=== PATIENT | female | born 2000 | race African-American/Black ===

== ENCOUNTER 2021-01-06 15:13 | Emergency (ER) | payer OTHER, SELFPAY ==
--- NOTE | ~2021-01-06 | XR_ITS ---
XR lumbar spine min 4V 01/06/2021 16:33 Indication: Low back pain after fall Procedure: 5 views of the lumbar spine Comparison: No prior studies for comparison. Findings: There is levoscoliosis measuring 12 degrees centered at L3. No fracture or traumatic malali gnment. Vertebral body heights are maintained. No significant disc narrowing. No evidence for spondyl olysis or spondylolisthesis. Sacral foramen are symmetric. Impression: 1: No acute abnormality of the lumbar spine. Reviewed, dictated and finalized at location A. Impression: 1: No acute abnormality of the lumbar spine.
[2021-01-06 15:17] VITALS: BP 137/64; PULSE 98; RESP 14; TEMP 36.6; O2SAT 99
[2021-01-06 15:33] VITALS: BP 137/64; PULSE 98; RESP 18; TEMP 36.6; O2SAT 100
--- NOTE | 2021-01-06 16:20 | PC.NURSE ---
pt to xray.
--- NOTE | 2021-01-06 16:36 | ED.FALL ---
HPI - Fall General Chief Complaint: Fall Stated Complaint: fall, lower back pain, brusing Time Seen by Provider: 01/06/21 15:59 Source: patient Mode of arrival: ambulatory Limitations: no limitations History of Present Illness HPI Narrative: Patient is a 20-year-old female who presents after injuring her back yesterday after slipping on the stairs landing on her back where she has aching pain across the lumbar spine no radiation of pain denies other injuries or complaints presents in no distress and does not take anything for pain Related Data Home Medications Medication Instructions Recorded Confirmed No Home Medications 01/06/21 01/06/21 Allergies Allergy/AdvReac Type Severity Reaction Status Date / Time No Known Allergies Allergy Verified 01/06/21 15:38 Review of Systems Review of Systems: All systems reviewed & are unremarkable except as noted in HPI and below PMFSH Social History Social History (Updated 01/06/21 @ 16:39 by Hemant Meier PA-C) Smoking status: Never smoker Exam Narrative: Exam Narrative: GENERAL: Well-appearing, well-nourished, and in no acute distress. HEAD: Normocephalic, atraumatic. EYES: PERRLA and EOMI. ENT: Nares clear, no rhinorrhea or epistaxis. Mucous membranes moist. NECK: Supple. No adenopathy or masses. CHEST: Clear to auscultation. No respiratory distress. No wheezes rales or rhonchi HEART: Regular rate and rhythm. No murmur heard. Normal peripheral pulses. ABDOMEN: Soft, nontender, nondistended EXTREMITIES: Normal range of motion. No edema. Tenderness across the lower lumbar spine SKIN: Warm, dry, no rash. NEURO: No focal deficits. Alert and oriented x3. Cranial nerves II through XII grossly intact PSYCH: Normal mood and affect. Course Course Emergency Course: Patient evaluated the emergency department negative radiographs will be treated medically given primary care follow-up felt appropriate for outpatient reevaluation no findings concerning for cauda equina or impingement Vital Signs Vital signs: Vital Signs Temperature 97.8 F 01/06/21 15:17 Pulse Rate 98 01/06/21 15:17 Respiratory Rate 14 01/06/21 15:17 Blood Pressure 137/64 01/06/21 15:17 Pulse Oximetry 99 01/06/21 15:17 Temperature 97.8 F 01/06/21 15:33 Pulse Rate 98 04/21/21 15:33 Respiratory Rate 18 01/06/21 15:33 Blood Pressure 137/64 01/06/21 15:33 Pulse Oximetry 100 01/06/21 15:33 MDM - Fall MDM Narrative Medical decision making narrative: Patients injury or pain is consistent with musculoskeletal etiology. No signs of neurological or vascular compromise on exam. Compartments and tisues are soft without signs of compartment syndrome. Pain is felt appropriate for further evaluation on an outpatient basis. Discharge Plan Discharge Clinical Impression: Acute bilateral low back pain Patient Disposition: Home, Self-Care Condition: Stable Instructions: Antibiotic Form, Acute Low Back Pain (ED) Additional Instructions: Medications as needed and prescribed. Limit lifting and bending. You may apply heat or cold to the area as needed. Follow up with your doctor for further care. Contact your doctor or return to the emergency department if you develop problems with bladder or bowel function, weakness or loss of feeling in one or both of your legs, or any other serious concerns. Prescriptions: New cyclobenzaprine 10 mg tablet 10 mg PO TID PRN (Reason: muscle spasm) Qty: 14 RF: 0 lidocaine 5 % adhesive patch,medicated 1 patch topical DAILY Qty: 1 RF: 0 ibuprofen [IBU] 600 mg tablet 600 mg PO Q6H PRN (Reason: fever or pain) Qty: 7 RF: 0 No Action No Home Medications RF: 0 Follow-up/Referrals: Bryan Hurst MD [Primary Care Provider] - Stand Alone Forms: Work/School Release IP
[2021-01-06] MEDS: LIDOCAINE 5% PATCH 1 PATCH TRANSDERM (16:40)
[2021-01-06] MEDS: KETOROLAC (*BKC) 60 MG/2 ML VIAL IM (16:40)
[2021-01-06 17:25] VITALS: BP 128/64; PULSE 93; RESP 20; O2SAT 97
== END 2021-01-06 17:28 | disposition home or self-care (01) ==
PROVIDERS: Emergency Provider Emergency Medicine; PCP Emergency Medicine
DX: S39.92XA Unspecified injury of lower back, initial encounter (principal); W10.9XXA Fall (on) (from) unspecified stairs and steps, initial encounter
CPT/HCPCS: 72110; 96372; 99283; A9270; J1885

== ENCOUNTER → 2021-01-27 14:42 | Outpatient (CLI) | payer OTHER, SELFPAY ==
--- NOTE | ~2021-01-27 | XR_ITS ---
XR hip LT min 2V DATE: 01/27/2021 15:07 INDICATION: Left hip and thigh pain TECHNIQUE: AP, lateral, crosstable lateral views of left hip COMPARISON: None FINDINGS: No fracture or dislocation, avascular necrosis or bone destruction. Left hip joint space is well preserved. The pubic symphysis and left sacroiliac joints appear intact. IMPRESSION: Negative left hip Reviewed, dictated and finalized at location A. IMPRESSION: Negative left hip
--- NOTE | ~2021-01-27 | XR_ITS ---
XR femur LT min 2V DATE: 01/27/2021 15:08 INDICATION: Left thigh pain TECHNIQUE: AP and lateral views of left femur COMPARISON: None FINDINGS: No fracture or dislocation, periosteal reaction or bone destruction. Normal alignment at th e left hip and knee joints. IMPRESSION: Negative left femur Reviewed, dictated and finalized at location A. IMPRESSION: Negative left femur
== END ==
LOC: EXPCRAD 14:46
PROVIDERS: PCP Emergency Medicine; Visit Provider Emergency Medicine
DX: M79.652 Pain in left thigh (principal)
CPT/HCPCS: 73502; 73552

== ENCOUNTER 2021-06-02 15:41 | Emergency (ER) | payer OTHER, SELFPAY ==
[2021-06-02 15:53] VITALS: BP 119/74; PULSE 69; RESP 16; TEMP 36.5; O2SAT 99
--- NOTE | 2021-06-02 16:23 | ED.DENTAL ---
HPI - Dental/Oral General Chief complaint: Dental/Oral Stated complaint: TOOTH PAIN Time Seen by Provider: 06/02/21 16:14 Source: patient and RN notes reviewed Mode of arrival: ambulatory Limitations: no limitations History of Present Illness HPI Narrative: Patient presents today complaining of left tooth pain x3 to 4 days. States she is unsure if it is the top or bottom teeth that are bothering her, or both. She currently rates her pain 10/10 and has been taking Tylenol and ibuprofen without much relief. States she is also taking some leftover antibiotics of her mother's, amoxicillin twice daily x3 days. She does have an appointment set up with a dentist in 6 days, but has not seen a dentist for 10 years. MD Complaint: tooth pain Related Data Allergies Allergy/AdvReac Type Severity Reaction Status Date / Time No Known Allergies Allergy Verified 01/06/21 15:38 Review of Systems Review of Systems: CONSTITUTIONAL: Denies body aches, fever, chills, or sweats. EYES: Denies visual changes, redness, or discharge. ENT: Denies rhinorrhea, congestion, sore throat, or otalgia.+ Tooth pain CARDIOVASCULAR: Denies chest pain, palpitations, or edema. RESPIRATORY: Denies cough or dyspnea. GASTROINTESTINAL: Denies abdominal pain, nausea, vomiting, or diarrhea. GENITOURINARY: Denies dysuria or hematuria. SKIN: Denies rash, itching, or wounds. MUSCULOSKELETAL: Denies back pain, joint pain, or myalgia. NEUROLOGIC: Denies headache, numbness, tingling, or weakness. PSYCH: Denies depression or anxiety. PMFSH Social History Social History Smoking status: Never smoker Comments At time of signature, I have reviewed and agree with nursing past medical, surgical, social and family history unless otherwise noted. Please see nursing chart for further information. There is no relevant family history pertinent to the presenting complaint Exam Narrative: GENERAL: Well-appearing, well-nourished, and in no acute distress. HEAD: Normocephalic, atraumatic. EYES: EOMI. No redness or drainage. Conjunctivae normal. ENT: Mucous membranes pink and moist. Nares clear. No rhinorrhea. Throat normal. Uvula midline. + Tenderness to the left upper and lower teeth. Gum lines appear normal. No obvious periapical abscesses. NECK: Normal AROM. Supple. No lymphadenopathy. CHEST: No respiratory distress. Clear to auscultation. HEART: Regular rate and rhythm. No murmur appreciated. Normal peripheral pulses. EXTREMITIES: Normal range of motion. No edema. SKIN: Warm, dry, no rash. Capillary refill normal. Normal skin turgor. NEURO: No focal deficits. Alert and oriented x3. Gait steady. PSYCH: Normal affect. No signs of depression or anxiety. Course Vital Signs Vital signs: Vital Signs Temperature 97.7 F 06/02/21 15:53 Pulse Rate 69 06/02/21 15:53 Respiratory Rate 16 06/02/21 15:53 Blood Pressure 119/74 06/02/21 15:53 Pulse Oximetry 99 06/02/21 15:53 Temperature 97.7 F 06/02/21 15:53 Pulse Rate 69 06/02/21 15:53 Respiratory Rate 16 06/02/21 15:53 Blood Pressure 119/74 06/02/21 15:53 Pulse Oximetry 99 06/02/21 15:53 Reviewed MDM - Dental/Oral Differential Diagnosis Differential diagnosis: Likely gingival abscess, dental caries, toothache, dental abscess and fracture of tooth Critical Care Time Critical Care Time Critical Care Time: No Discharge Plan Discharge Clinical Impression: Toothache Patient Disposition: Home, Self-Care Condition: Stable Instructions: Antibiotic Form, Toothache (ED) Additional Instructions: Take the clindamycin as prescribed until gone. Follow-up with your dentist as scheduled. Continue Tylenol or ibuprofen at home for pain. Patient Language: French Prescriptions: New clindamycin HCl 300 mg capsule 300 mg PO Q6H 10 Days Qty: 40 RF: 0 No Action cyclobenzaprine 10 mg tablet 10 mg PO TID TN
== END 2021-06-02 16:35 | disposition home or self-care (01) ==
PROVIDERS: Emergency Provider Nurse Practitioner
DX: K08.89 Other specified disorders of teeth and supporting structures (principal)
CPT/HCPCS: 99213; G0463

== ENCOUNTER 2021-09-08 16:18 | Emergency (ER) | payer OTHER, SELFPAY ==
--- NOTE | 2021-09-08 16:23 | PC.NURSE ---
While beginning to triage, pt asked about the wait time. this RN told pt that we are very busy and it is a long wait. Pt states im going to just go home and get my rx and try that, my headache is very mild and if it gets worse I will come back . This RN tells pt she can come back at anytime. Pt ambulated out of dept with a steady gait
== END 2021-09-09 04:31 | disposition left against medical advice (07) ==
LOC: ANHED 16:49
PROVIDERS: PCP Emergency Medicine
DX: Z53.21 Procedure and treatment not carried out due to patient leaving prior to being seen by health care provider (principal)
CPT/HCPCS: 99199

== ENCOUNTER → 2021-09-09 02:51 | Outpatient (CLI) | payer OTHER, SELFPAY ==
[2021-09-09 19:47] LABS: SARS-CoV-2 RNA PCR Negative
== END ==
PROVIDERS: PCP Emergency Medicine; Visit Provider Emergency Medicine
DX: J32.9 Chronic sinusitis, unspecified (principal); Z20.822 Contact with and (suspected) exposure to COVID-19
CPT/HCPCS: C9803; U0003; U0005

== ENCOUNTER 2021-09-10 11:29 | Emergency (ER) | payer OTHER, SELFPAY ==
[2021-09-10 12:35] VITALS: BP 140/85; PULSE 100; RESP 16; TEMP 37.2; O2SAT 99
--- NOTE | 2021-09-10 13:32 | ED.URI ---
HPI - URI/Sore Throat General Chief Complaint: Upper Respiratory Infection Stated Complaint: sinus infection Time Seen by Provider: 09/10/21 13:17 Source: patient and RN notes reviewed Mode of arrival: ambulatory Limitations: no limitations History of Present Illness HPI Narrative: Patient presents today complaining of cold symptoms for the last 2 weeks. States most of her cold symptoms went away but the headache she had has persisted for the past 1+ weeks. She talk to her PCP a few days ago and was called in a prescription for some Augmentin. She has taken 3 doses and skip the morning dose this morning because she did not have any food in her stomach. She was told to go to the ER for checkout. She went to ice but the wait was too long and she went home. Her headache is located in the frontal area, down the nasal bridge, maxillary sinus area bilaterally as well. She has been taking occasional Tylenol without much relief. Denies dizziness, lightheadedness, nausea or vomiting, numbness or tingling in the extremities, vision changes. MD elicited complaint: other (Headache) Related Data Allergies Allergy/AdvReac Type Severity Reaction Status Date / Time No Known Allergies Allergy Verified 01/06/21 15:38 Review of Systems Review of Systems: CONSTITUTIONAL: Denies body aches, fever, chills, or sweats. EYES: Denies visual changes, redness, or discharge. ENT: Denies rhinorrhea, congestion, sore throat, or otalgia. CARDIOVASCULAR: Denies chest pain, palpitations, or edema. RESPIRATORY: Denies cough or dyspnea. GASTROINTESTINAL: Denies abdominal pain, nausea, vomiting, or diarrhea. GENITOURINARY: Denies dysuria or hematuria. SKIN: Denies rash, itching, or wounds. MUSCULOSKELETAL: Denies back pain, joint pain, or myalgia. NEUROLOGIC: Denies numbness, tingling, or weakness.+ Headache PSYCH: Denies depression or anxiety. PMFSH Social History Social History Smoking status: Never smoker Comments At time of signature, I have reviewed and agree with nursing past medical, surgical, social and family history unless otherwise noted. Please see nursing chart for further information. There is no relevant family history pertinent to the presenting complaint Exam Narrative: GENERAL: Well-appearing, well-nourished, and in no acute distress. HEAD: Normocephalic, atraumatic. EYES: EOMI. No redness or drainage. Conjunctivae normal. ENT: Mucous membranes pink and moist. Nares clear. No rhinorrhea. TMs normal bilaterally. Throat normal. Uvula midline. NECK: Normal AROM. Supple. No lymphadenopathy. CHEST: No respiratory distress. Clear to auscultation. HEART: Regular rate and rhythm. No murmur appreciated. Normal peripheral pulses. EXTREMITIES: Normal range of motion. No edema. SKIN: Warm, dry, no rash. Capillary refill normal. Normal skin turgor. NEURO: No focal deficits. Alert and oriented x3. Gait steady. PSYCH: Normal affect. No signs of depression or anxiety. Course Vital Signs Vital signs: Vital Signs Temperature 98.9 F 09/10/21 12:35 Pulse Rate 100 09/10/21 12:35 Respiratory Rate 16 09/10/21 12:35 Blood Pressure 140/85 09/10/21 12:35 Pulse Oximetry 99 09/10/21 12:35 Temperature 98.9 F 09/10/21 12:35 Pulse Rate 100 09/10/21 12:35 Respiratory Rate 16 09/10/21 12:35 Blood Pressure 140/85 09/10/21 12:35 Pulse Oximetry 99 09/10/21 12:35 Reviewed. Pt has been instructed to follow up with her PCP regarding her elevated blood pressure today. MDM - URI/Sore Throat Differential Diagnosis Differential diagnosis: Likely upper respiratory infection, sinusitis and other (Migraine, tension headache, cluster headache) Critical Care Time Critical Care Time Critical Care Time: No Discharge Plan Discharge Clinical Impression: Sinusitis Qualifiers: Sinusitis location: unspecified location Chronicity: acute Recurrence: non-recurrent
== END 2021-09-10 13:35 | disposition home or self-care (01) ==
PROVIDERS: Emergency Provider Nurse Practitioner; PCP Emergency Medicine
DX: J01.90 Acute sinusitis, unspecified (principal)
CPT/HCPCS: 99211; G0463

== ENCOUNTER 2024-06-15 20:29 | Emergency (ER) | payer MEDICAID, SELFPAY ==
[2024-06-15 20:34] VITALS: BP 125/75; PULSE 88; RESP 21; TEMP 36.1; O2SAT 100
--- NOTE | 2024-06-16 01:47 | PC.NURSE ---
Patient walked up to triage area and advised that she was leaving. Patient had a steady gait upon exiting the ED.
== END 2024-06-16 02:04 | disposition left against medical advice (07) ==
LOC: ANHED 06-16 02:00
PROVIDERS: PCP Emergency Medicine
DX: R10.9 Unspecified abdominal pain (principal)
CPT/HCPCS: 99199